=== PATIENT | male | born 1980 | race Two or more races ===

== ENCOUNTER 2021-04-06 10:34 | Emergency (ER) | payer MEDICAID ==
[~2021-04-06] VITALS: Ht 177.8 cm; Wt 108.9 kg
[2021-04-06 16:50] VITALS: BP 113/77
[2021-04-06] MEDS ORDERED: cefTRIAXone SOD 1,000 MG VL ONE (16:51)
[2021-04-06] MEDS ORDERED: cefTRIAXone SOD 1,000 MG VL IM ONE (17:00)
[2021-04-06] MEDS ORDERED: BACITRACIN TOP OINT 1 UD PKG TOP ONE (17:15)
== END 2021-04-06 17:05 | disposition home or self-care (01) ==
LOC: ER 10:34
DX: S61.412A Laceration without foreign body of left hand, initial encounter (principal); S61.451A Open bite of right hand, initial encounter; W54.0XXA Bitten by dog, initial encounter; Y93.89 Activity, other specified; Y92.89 Other specified places as the place of occurrence of the external cause; Y99.8 Other external cause status
CPT/HCPCS: 96372; 99283; J0696

== ENCOUNTER 2022-10-14 12:03 | Emergency (ER) | payer MEDICAID ==
[~2022-10-14] VITALS: Ht 177.8 cm; Wt 104.0 kg
[2022-10-14] MEDS ORDERED: SODIUM CHLORIDE 0.9% 1,000 ML IVB ONE (12:15)
[2022-10-14] MEDS ORDERED: ONDANSETRON HCL 4 MG/2 ML VIAL IV ONE (12:15)
[2022-10-14 13:13] LABS: Basophils # (auto) 0 10 ^3/uL (0-0.2); Basophils % (auto) 0.3 % (0.0-2.0); Eosinophils # (auto) 0 10 ^3/uL (0-0.8); Eosinophils % (auto) 0.4 % (0.0-7.0); Hematocrit 47.9 % (41.0-53.0); Hemoglobin 16.2 g/dL (13.5-17.5); Lymphocytes # (auto) 0.9 10 ^3/uL (0.4-5.4); Lymphocytes % (auto) 7.7 % (10.0-50.0); Mean Corpuscular Hemoglobin 29.9 pg (28.0-32.0); Mean Corpuscular Hgb Conc. 33.8 g/dL (32.0-36.0); Mean Corpuscular Volume 88.5 fL (80.0-100.0); Monocytes # (auto) 0.9 10 ^3/uL (0-1.3); Monocytes % (auto) 7.6 % (0.0-12.0); Neutrophils # (auto) 9.6 10 ^3/uL (1.6-8.6); Nucleated Red Blood Cells % 0.1 %; Red Blood Cells 5.41 10^6/uL (4.5-5.90); Red Cell Distribution Width 13.9 % (11.8-14.3); White Blood Cell 11.5 10^3/uL (4.4-10.8)
[2022-10-14 13:33] LABS: Albumin 4.1 g/dL (3.4-5.0); Anion Gap 9 (5-15); Blood Alcohol < 3.0 mg/dL (0-5); Blood Urea Nitrogen 18 mg/dL (7-18); Calcium 8.4 mg/dL (8.5-10.1); Carbon Dioxide 24 mmol/L (21-32); Chloride 107 mmol/L (98-107); Glucose 187 mg/dL (74-106); Potassium 4.3 mmol/L (3.5-5.1); Sodium 140 mmol/L (136-145)
[2022-10-14 13:36] LABS: Alanine Aminotransferase 43 U/L (16-61); Alkaline Phosphatase 48 U/L (45-117); Aspartate Aminotransferase 27 U/L (15-37); BUN/Creatinine Ratio 14.4; Bilirubin, Total 0.6 mg/dL (0.2-1.0); GFR African American 82 mL/min; GFR Non-African American 68 mL/min; Total Protein 7.2 g/dL (6.4-8.2)
[2022-10-14 16:00] VITALS: BP 120/95
== END 2022-10-14 16:12 | disposition home or self-care (01) ==
LOC: EDBD 12:03 → EDUNIT# 12:03 → ER 12:03
DX: T40.2X1A Poisoning by other opioids, accidental (unintentional), initial encounter (principal); F17.210 Nicotine dependence, cigarettes, uncomplicated; Y92.89 Other specified places as the place of occurrence of the external cause
CPT/HCPCS: 36415; 80053; 80320; 85025; 93005; 96361; 96374; 99284; J2405; J7030

== ENCOUNTER 2022-11-26 12:10 | Emergency (ER) | payer MEDICAID ==
[~2022-11-26] VITALS: Ht 177.8 cm; Wt 113.6 kg
[2022-11-26 13:54] VITALS: BP 144/96
[2022-11-26] MEDS ORDERED: IPRATROPIUM BROM 0.5 MG/2.5ML INH SOL NEB ONE (14:00)
[2022-11-26] MEDS ORDERED: ALBUTEROL SULF 2.5 MG/0.5ML(0.5%) NEB SOLN NEB ONE (14:00)
[2022-11-26] MEDS ORDERED: ALBUTEROL MEDNEB 2.5 mg/3ml NEB ONE (14:06)
[2022-11-26] MEDS ORDERED: ALBU108A5 IN (14:52)
[2022-11-26] MEDS ORDERED: AZIT500T66 PO (14:52)
[2022-11-26] MEDS ORDERED: PROM1SOL4 PO (14:52)
== END 2022-11-26 15:05 | disposition home or self-care (01) ==
LOC: ER 12:10
DX: J20.9 Acute bronchitis, unspecified (principal); F17.210 Nicotine dependence, cigarettes, uncomplicated
CPT/HCPCS: 71046; 94640; 99283; J7644